=== PATIENT | female | born 1965 | race Caucasian/White ===

== ENCOUNTER 2016-05-05 06:55 | Observation (INO) | payer BC ==
[~2016-05-05 06:55] MED LIST: Buffered Lidocaine 1% SYR 3ML* 3 ML/SYR SYRINGE INTRADERM ONE; Dexamethasone IV* 4 MG/ML 1 ML (4 MG) IV SLOW PU ONE; Famotidine IV* 10 MG/ML 2 ML (20 mg) IV ONE; Scopolamine 1.5 mg* PATCH TRANSDERM ONE
[2016-05-05] MEDS ORDERED: Famotidine IV* 10 MG/ML 2 ML (20 mg) ONE (07:09)
[2016-05-05] MEDS ORDERED: Buffered Lidocaine 1% SYR 3ML* 3 ML/SYR SYRINGE ONE (07:09)
[2016-05-05] MEDS ORDERED: Dexamethasone IV* 4 MG/ML 1 ML (4 MG) ONE (07:09)
[2016-05-05] MEDS ORDERED: Scopolamine 1.5 mg* PATCH ONE (07:09)
[2016-05-05 07:30] LABS: UR Preg Kit Lot# 6060104
[2016-05-05 07:34] LABS: UR Preg Internal Control QC Line Present
[2016-05-05 07:35] LABS: Manual Entry Verification AS
[2016-05-05] MEDS ORDERED: Lidocain 1% EPI 1:100,000 * 30 ML MDV ONE (08:40)
[2016-05-05] MEDS ORDERED: Midazolam* 1 MG/ML 5 ML VIAL (5 MG) ONE (08:47)
[2016-05-05] MEDS ORDERED: Lidocaine 2% MPF* 2 ML VIAL ONE (08:47)
[2016-05-05] MEDS ORDERED: fentaNYL* 50 MCG/ML 5 ML VIAL (250 MCG VIAL) ONE (08:47)
[2016-05-05] MEDS ORDERED: Propofol* 10 MG/ML 20 ML BTL IV PUSH ONE (08:47)
[2016-05-05] MEDS ORDERED: Succinylcholine* 20 MG/ML 10 ML VIAL ONE (08:47)
[2016-05-05] MEDS ORDERED: Phenylephrine IV* 40 MCG/ML 10 ML SYRINGE ONE (09:18)
[2016-05-05] MEDS ORDERED: EPHEDrine (Pressors)* 50 MG/ML VIAL ONE (09:26)
[2016-05-05] MEDS ORDERED: Phenylephrine INJ* 10 MG/ML 1 ML VIAL (10 MG) ONE (09:33)
[2016-05-05] MEDS ORDERED: fentaNYL* 50 MCG/ML 2 ML VIAL (100 MCG VIAL) ONE ×2 (10:02→10:56)
[2016-05-05] MEDS ORDERED: oxyCODONE/Acetamin 5/325 MG* TAB PO PRN (10:06)
[2016-05-05] MEDS ORDERED: PROCHLORPERAZINE INJ 5 MG/ML 2 ML VIAL IV PRN (10:06)
[2016-05-05] MEDS ORDERED: fentaNYL* 50 MCG/ML 2 ML VIAL (100 MCG VIAL) IV PRN (10:06)
[2016-05-05] MEDS ORDERED: Metoprolol Tartrate IV* 1 MG/ML 5 ML VIAL ONE (10:16)
[2016-05-05] MEDS ORDERED: Ondansetron INJ* 2 MG/ML VIAL ONE (11:15)
[2016-05-05] MEDS ORDERED: PROCHLORPERAZINE INJ 5 MG/ML 2 ML VIAL ONE (13:26)
[2016-05-05] MEDS ORDERED: oxyCODONE/Acetamin 5/325 MG* TAB ONE (14:08)
[2016-05-05] MEDS ORDERED: HYDROcodone/ACET. 7.5/325 LIQ* 15 ML UDC PO PRN ×2 (15:08)
[2016-05-05] MEDS ORDERED: Ondansetron INJ* 2 MG/ML VIAL IV PRN (15:09)
[2016-05-05] MEDS ORDERED: Ondansetron TAB* 4 MG PO PRN (15:09)
[2016-05-05] MEDS ORDERED: Ibuprofen ADULT LIQ* 600 MG/30 ML UDC PO PRN (15:10)
[2016-05-05] MEDS ORDERED: Albuterol HFA INHALER* 8 gm MDI INH PRN (15:14)
--- NOTE | 2016-05-05 20:34 | HP ---
HOSPITAL MEDICINE HISTORY AND PHYSICAL: DATE OF ADMISSION: 05/05/16 ATTENDING PHYSICIAN: Dr. Jarocho Burrows * (dictation provided by Katherine Wright NP). CHIEF COMPLAINT: Status post thyroidectomy. HISTORY OF PRESENT ILLNESS: Ms. Bates is a 50-year-old female with a past medical history of hypertension and recent diagnosis of thyroid cancer, who presents today to the hospital with plan for thyroidectomy. Please see the original history and physical documented by Dr. Stewart for complete details. 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 Per the verbal report, the operation was uneventful. The patient is planned for observation overnight for close monitoring for hematoma, hypocalcemia, and voice hoarseness. Ms. Bates states that prior to coming in for the surgery, she was feeling well and she has no acute complaints other than some mild throat soreness at this time. PAST MEDICAL HISTORY: 1. Hypertension. 2. Recent diagnosis of papillary thyroid carcinoma. 3. History of diskectomy. MEDICATIONS: As outpatient are: 1. Albuterol 2 puffs inhaled four times a day p.r.n. 2. Calcium 400 to 600 mg p.o. as directed. 3. Losartan/hydrochlorothiazide 100/12.5 one tab p.o. bedtime. ALLERGIES: To SULFA ANTIBIOTICS. FAMILY HISTORY: Reviewed. SOCIAL HISTORY: No report of alcohol, tobacco, or drug use. The patient lives with her who is the healthcare proxy. REVIEW OF SYSTEMS: A 14-point review of systems was completed with Ms. Bates and all those not mentioned above are negative. PHYSICAL EXAMINATION GENERAL: Ms. Bates is lying in the bed in no acute distress. VITAL SIGNS: Temperature 97.2, heart rate 97, respiratory rate 16, O2 saturation 97% on 2 L nasal cannula, blood pressure 143/79. HEENT: The patient has Steri-Strips to the midline of her neck with a drain with sanguineous drainage. There is no swelling. There is no redness. There is no drainage other than that noted in the drain itself. LUNGS: Clear to auscultation bilaterally with no accessory muscle use and good aeration. HEART: S1, S2. No murmur, rub, or gallop, and regular. ABDOMEN: Soft, nontender with bowel sounds positive x4. EXTREMITIES: No cyanosis or edema. NEURO: She is alert and oriented x3. She moves all extremities. There is no facial asymmetry or focal weakness. SKIN: Intact. LABORATORY DATA: Calcium is 8.8 today at 0138. ASSESSMENT AND PLAN: Ms. Bates is a 50-year-old female with a past medical history of hypertension, who was diagnosed with thyroid cancer, now is planned for thyroidectomy with Dr. Stewart today. Per the report, operation was uneventful and plans are for observation in the hospital overnight for the followin. Postop day #0 status post thyroidectomy: Management per Dr. Stewart and his team. Plans are to observe the patient closely overnight. She has a normal calcium level at this point. I do not see that calcium supplementation was ordered by Dr. Stewart as of yet, but I will defer to his management of this as I am not clear what the plans are postoperatively for radiation, etc. The patient will be monitored closely for evidence of hematoma or any compromise in her airway or breathing. 2. Hypertension: Plan to continue losartan/hydrochlorothiazide. 3. DVT prophylaxis is deferred to the ENT team. At this time, it has not been ordered, but I will put her on SCDs. 4. Code status is full code. TIME SPENT: Approximately 45 minutes was spent on admission of this patient, more than half the time was spent with her at the bedside reviewing the events leading up to this hospitalization, performing the physical examination, and reviewing my plan [place] [id number]/CPS #: [id number] RAHEEM
[2016-05-05] MEDS: Calcium Carbonate LIQ* 1,250 MG/5 ML UDC PO SCH (21:05)
[2016-05-05] MEDS: Hydrochlorothiazide TAB* 25 MG PO SCH (21:07)
[2016-05-05] MEDS: Losartan TAB* 25 MG PO SCH (21:07)
--- NOTE | 2016-05-06 00:46 | OP ---
DATE OF OPERATION: 05/05/16 - ROOM #338 DATE OF : 63 SURGEON: John Stewart MD AIR QUALITY MANAGER: Dr. Kevin Graham. ANESTHESIOLOGIST: Dr. Ge. ANESTHESIA: General. PRE-OP DIAGNOSIS: Papillary carcinoma of the thyroid. POST-OP DIAGNOSIS: Papillary carcinoma of the thyroid. OPERATIVE PROCEDURE: Total thyroidectomy. EBL: Approximately 100 cc. SPECIMEN: Total thyroidectomy to pathology. INDICATION: This is a 50-year-old woman who was recently diagnosed with a 4 cm papillary thyroid carcinoma on the right. Decision was made to proceed with total thyroidectomy. DESCRIPTION OF PROCEDURE: She was brought to the operating room on 05/05/16. General anesthesia was induced and a NIMS endotracheal tube was placed. Positioning was confirmed visually. The monitor was then turned on after grounding electrodes were placed and found to be in good working order. The patient was positioned and the intended incision site was marked out with a marking pen. A 5 cc of 1% lidocaine with epinephrine was infiltrated into the subcutaneous soft tissue. The neck was then prepped with Betadine. The patient was draped in a sterile fashion and a time-out was performed. A 15 blade was used to make incision. Deeper dissection through the subcutaneous fat and platysma was undertaken with Bovie cautery. Subplatysmal flaps were then raised superiorly and inferiorly. The Jj retractor was then placed into the wound. The straps were then divided vertically along the median raphe to expose the thyroid gland. The procedure was begun on the right side. The right superior pole region was explored first. The patient had a prior anterior cervical disk fusion procedure done through a right cervical approach, and in the region of the superior pole there was extensive scarring, which did make the dissection fairly slow and tedious. The superior pole was; however, ultimately able to be skeletonized and the superior pole vasculature identified , ligated with hemoclips and divided with the LigaSure device. The gland was then reflected medially. The inferior trachea and the esophageal groove region was explored to identify the location of the recurrent laryngeal nerve. This was visually identified and then confirmed with a nerve stimulator. The nerve was used as a landmark for further dissection superiorly. A tight capsular dissection was then undertaken to preserve the perithyroidal soft tissue, which contained one apparent parathyroid gland. It was preserved with its blood supply in continuity. Middle thyroid vein was ligated and divided and the gland was reflected off the anterior wall of the trachea. A very small cuff of thyroid tissue was left in the region of Triana's ligaments. Once the gland was reflected off Triana's ligaments, the bed was inspected. The recurrent laryngeal nerve was intact and stimulated and one candidate parathyroid gland was in position with good color. The strap muscles were then reflected off the left lobe of the thyroid. The left superior pole was explored. The superior pole vascular pedicle was ligated with hemoclips and divided with a LigaSure device. The left lobe was also fairly nodular, was reflected medially. The inferior trachea of the esophageal groove region was explored and the recurrent laryngeal nerve was identified and used as landmark for subsequent dissection. A tight capsular dissection was then undertaken on the left side to preserve inferior thyroid artery branches to two parathyroid glands, which were visually identified. These were kept intact with their blood supply in continuity. The gland was reflected off the anterior trachea up to Triana's ligament. The Triana' s ligament was then divided with a bipolar forceps leaving a very small cuff of thyroid tissue where it was very closely invested with the nerve. The wound was then copiously irrigated. Blood samples were performed. A couple of small areas of minor bleeding were controlled with bipolar. Into the region of Triana' s ligament bilaterally, a small piece of Surgicel was placed. A drain #7 ALINA was then placed and brought out through the left side of the incision. It was sutured in position. The strap muscles were then reapproximated vertically. The platysma was then closed with 3-0 Vicryl and final skin closure was performed with 4-0 nylon. Steri-Strips and Mastisol were applied. The patient was then returned to the care of the anesthesiologist and extubated without difficulty leaving the PACU in stable condition. [id number]/CPS #: [id number] RAHEEM
[2016-05-06] MEDS ORDERED: Levothyroxine TAB* 100 MCG TAB PO SCH (06:00)
[2016-05-06] MEDS: Calcium Carbonate LIQ* 1,250 MG/5 ML UDC PO SCH (08:43)
[2016-05-06] MEDS: Hydrochlorothiazide TAB* 25 MG PO SCH (08:44)
[2016-05-06] MEDS: Losartan TAB* 25 MG PO SCH ×2 (08:44→08:45)
[2016-05-06 12:03] VITALS: BP 116/55
--- NOTE | 2016-05-06 12:21 | DCNOTE ---
Subjective Date of Service: 05/06/16 Interval History: Very mild incisional pain. NO trouble with swallowing. No new c/o. Objective Active Medications: Acetaminophen/Hydrocodone Bitart (Nortab 7.5/325 Liq*) 10 ml PO Q4H PRN PRN Reason: PAIN Acetaminophen/Hydrocodone Bitart (Nortab 7.5/325 Liq*) 20 ml PO Q4H PRN PRN Reason: PAIN - SEVERE Albuterol (Ventolin Hfa Inhaler*) 2 puff INH QID PRN PRN Reason: SOB/WHEEZING Calcium Carbonate (Calcium Carbonate Liq*) 1,200 mg PO TID [facility] Last Admin: 05/06/16 08:43 Dose: 1,200 mg Hydrochlorothiazide (Hydrodiuril Tab*) 12.5 mg PO DAILY [facility] Last Admin: 05/06/16 08:44 Dose: Not Given Lactated Ringer's (Lactated Ringers 1000 Ml Bag*) 1,000 mls @ 0 mls/hr IV PER RATE [facility] PRN Reason: KVO Last Admin: 05/05/16 07:51 Dose: 125 mls/hr Ibuprofen (Motrin Liq Adult*) 800 mg PO Q8H PRN PRN Reason: PAIN Levothyroxine Sodium (Synthroid Tab*) 100 mcg PO DAILY@0600 [facility] Last Admin: 05/06/16 05:56 Dose: 100 mcg Losartan Potassium (Cozaar Tab*) 100 mg PO DAILY [facility] Last Admin: 05/06/16 08:45 Dose: Not Given Ondansetron HCl (Zofran Inj*) 8 mg IV Q6H PRN PRN Reason: NAUSEA/VOMITING Last Admin: 05/05/16 15:23 Dose: 8 mg Ondansetron HCl (Zofran Tab*) 8 mg PO Q6H PRN PRN Reason: NAUSEA/VOMITING Pharmacy Profile Note (Scopolomine Patch Remove*) 1 note PATCH OFF ONCE ONE Stop: 05/08/16 06:01 Vital Signs 05/05/16 05/05/16 05/05/16 13:18 13:20 13:25 Temperature 97.2 F Pulse Rate 108 111 113 Respiratory 16 16 16 Rate Blood Pressure 148/82 150/82 132/82 (mmHg) O2 Sat by Pulse 95 94 93 Oximetry 05/05/16 05/05/16 05/05/16 13:30 13:45 14:00 Temperature Pulse Rate 101 102 96 Respiratory 16 16 16 Rate Blood Pressure 122/58 135/85 150/67 (mmHg) O2 Sat by Pulse 96 96 96 Oximetry 05/05/16 05/05/16 05/05/16 14:15 14:30 14:45 Temperature 97.2 F Pulse Rate 97 97 97 Respiratory 16 16 16 Rate Blood Pressure 143/79 140/82 139/88 (mmHg) O2 Sat by Pulse 98 97 97 Oximetry 05/05/16 05/05/16 05/05/16 15:15 16:07 17:19 Temperature 97.6 F 97.9 F 97.9 F Pulse Rate 101 100 100 Respiratory 16 18 16 Rate Blood Pressure 152/71 141/78 144/71 (mmHg) O2 Sat by Pulse 97 97 95 Oximetry 05/05/16 05/05/16 05/05/16 19:24 21:05 22:10 Temperature 98.6 F 98.5 F Pulse Rate 110 108 Respiratory 16 16 16 Rate Blood Pressure 119/68 112/52 (mmHg) O2 Sat by Pulse 96 97 Oximetry 05/05/16 05/06/16 05/06/16 23:26 03:34 08:00 Temperature 98.9 F 98.8 F Pulse Rate 104 84 Respiratory 16 16 18 Rate Blood Pressure 107/42 128/61 (mmHg) O2 Sat by Pulse 96 97 Oximetry 05/06/16 05/06/16 05/06/16 08:11 08:43 11:54 Temperature 98.5 F 97.8 F Pulse Rate 90 95 Respiratory 18 18 Rate Blood Pressure 138/71 116/55 (mmHg) O2 Sat by Pulse 96 97 94 Oximetry Oxygen Devices in Use Now: None Appearance: Alert, standing by her bed. In good spirits. Looks comfortable. Eyes: No Scleral Icterus Neck: - - Mild swelling at incision, no erythema. No masses Extremities: No Edema, No Clubbing, Cyanosis, - Skin: No Rash or Ulcers, No Nodules or Sclerosis, - Neurological: Alert and Oriented x 3, NL Sensation Assess/Plan/Problems-Billing Assessment: - Patient Problems (1) Status post total thyroidectomy Current Visit: Yes Status: Acute Code(s): E89.0 - POSTPROCEDURAL HYPOTHYROIDISM SNOMED Code(s): 738947125 Comment: Satisfctory post-op course. Calcium level stable at 8.8. Pt has levothyroxine as prescribed by her well tester, analgesic med per Dr. Stewart. (2) HTN (hypertension) Current Visit: Yes Status: Acute Code(s): I10 - ESSENTIAL (PRIMARY) HYPERTENSION SNOMED Code(s): 64535434 Comment: Resume her usual BP meds. Status and Disposition: Discharge now. Fup Pat Kern, and her well tester.
--- NOTE | 2016-05-06 23:50 | DS ---
CC: Dr. Rod; Dr. Stewart DISCHARGE SUMMARY: DATE OF ADMISSION: DATE OF DISCHARGE: 05/06/16 HOSPITAL COURSE: This 50-year-old woman was admitted after elective total thyroidectomy by Dr. Stefanie gan. She was diagnosed with a papillary thyroid carcinoma of the right lobe of the thyroid. The oper ation proceeded as planned. The postoperative course was quite satisfactory. Her calcium level rem ain quite stable at 8.8. She was in very good condition at discharge with very mild pain that is re quiring analgesics at this time. She has a supply of analgesic medication prescribed by Dr. Stewart a harjeet mariposa. She was started on levothyroxine as prescribed by her heel shaper to 100 mcg daily. Agusto gaspar is also on calcium carbonate 1200 mg t.i.d. She will continue all these medications and her blood pressure medications at home. FINAL DIAGNOSES: 1. Status post total thyroidectomy for papillary carcinoma of the thyroid. 2. Hypertension. DISCHARGE MEDICATIONS: 1. Levothyroxine 100 mcg daily. 2. Losartan/hydrochlorothiazide combination as prescribed (Hyzaar) 100/12.5. 3. Calcium carbonate 1200 mg t.i.d. [id number]/[facility] #: [id number]
[2016-05-08] MEDS ORDERED: Scopolamine PATCH Remove* 1 NOTE MISC PATCH OFF ONE (06:00)
== END 2016-05-06 12:30 | disposition home or self-care (01) ==
LOC: OR 06:55 → SSU 14:20
PROVIDERS: ADMIT Otolaryngology; ATTEND Internal Medicine
PROC: 0GTK0ZZ Resection of Thyroid Gland, Open Approach (ICD-10-PCS; principal; 2016-05-05 08:30)
DX: C73 Malignant neoplasm of thyroid gland (principal); I10 Essential (primary) hypertension
CPT/HCPCS: 36415; 81025; 82310; 88307; A9270-GY; G0378; J0330; J0780; J1100; J2250; J2405; J2704; J3010; J3490